=== PATIENT | female | born 1980 | race Caucasian/White ===

== ENCOUNTER → 2018-04-14 10:09 | Outpatient (CLI) | payer OTHER | END | disposition home or self-care (01) | LOC: D.RT 04-13 14:00 | DX: J45.909 Unspecified asthma, uncomplicated (principal) ==

== ENCOUNTER 2019-11-26 01:40 | Emergency (ER) | payer OTHER ==
[~2019-11-26] VITALS: Ht 162.6 cm; Wt 109.1 kg
[2019-11-26 01:43] VITALS: Ht 162.6 cm; Wt 109.1 kg
[2019-11-26] MEDS ORDERED: FAMVIR250 MG PO (02:03)
[2019-11-26] MEDS ORDERED: MEDROL DOSE PACK4 MG PO (02:03)
[2019-11-26 03:06] VITALS: BP 120/69
== END 2019-11-26 03:07 | disposition home or self-care (01) ==
LOC: D.ER 01:40
DX: G51.0 Bell's palsy (principal); J45.909 Unspecified asthma, uncomplicated

== ENCOUNTER 2019-11-29 11:58 | Emergency (ER) | payer OTHER ==
[~2019-11-29] VITALS: Ht 162.6 cm; Wt 118.2 kg
[~2019-11-29 11:58] MED LIST: FAMVIR250 MG PO; MEDROL DOSE PACK4 MG PO
[2019-11-29 12:04] VITALS: Ht 162.6 cm; Wt 118.2 kg
[2019-11-29 13:43] VITALS: BP 143/93
== END 2019-11-29 13:43 | disposition home or self-care (01) ==
LOC: D.ER 11:58
DX: G51.0 Bell's palsy (principal); H92.02 Otalgia, left ear; R51 Headache; J45.909 Unspecified asthma, uncomplicated